=== PATIENT | female | born 1990 | race Caucasian/White ===

== ENCOUNTER → 2017-03-04 | Outpatient (CLI) | payer OTHER | LOC: BMCIMAGING 10:21 | PROVIDERS: ATTEND Physician Assistant | DX: Z12.39 Encounter for other screening for malignant neoplasm of breast (principal); N63 Unspecified lump in breast ==

== ENCOUNTER → 2018-11-17 | Outpatient (CLI) | payer OTHER, MEDICAID | LOC: FIMAGING 15:05 | PROVIDERS: ATTEND Physician Assistant | DX: M54.2 Cervicalgia (principal) ==

== ENCOUNTER → 2018-12-01 | Outpatient (CLI) | payer OTHER, MEDICAID | LOC: BMCIMAGING 14:58 | PROVIDERS: ATTEND Physician Assistant | DX: M54.2 Cervicalgia (principal) ==